=== PATIENT | male | born 1990 | race Hispanic/Latino ===

== ENCOUNTER 2016-09-06 20:14 | Emergency (ER) | payer MEDICAID ==
[~2016-09-06] VITALS: Ht 165.1 cm; Wt 223.2 kg
[~2016-09-06 20:14] MED LIST: NOMED
--- NOTE | 2016-09-06 20:35 | ED.REPORT ---
HPI-Extremity Problem Lower Date of Service September 06, 2016 ED Provider: Zeke Narvaez MD Pt is a 26 y/o male w/ a hx of morbid obesity, diabetes, presenting to the ED c/ o left calf pain and swelling onset today. He injured his left leg months ago exercising and was told to gently use it. He also just completed an [address] He denies SOB, hx DVT or PE, rash, fever, chills. There is no history of similar symptoms. Nursing Notes Stated Complaint: LT LEG SWELLING Nursing Notes Reviewed: Yes Allergies: Coded Allergies: No Known Allergies (Verified Allergy, Unknown, 09/06/16) Scheduled PRN Cyclobenzaprine (Cyclobenzaprine) 5 Mg Tablet 5 MG PO HS PRN PRN Spasm Miscellaneous Medications No Historical Medication (No Historical Medication) Ea General Time Seen by MD: 20:17 Chief Complaint Other (lle pain) Hx Obtained From: Patient Arrived By: Walk-in Onset Occurred: 5 - 8 hours ago Symptom Duration: Since onset Location: : Leg left Quality: Painful Severity: Current: Moderate Severity: Maximum: Moderate Past Medical History Past Medical History Diabetes Morbid obesity Past Surgical History None reported Smoking History Unknown if Ever Smoker Ambulatory Status Independent Review of Systems Constitutional: Denies: Chills, Fever Musculoskeletal: Reports: Extremity pain, Extremity swelling Skin: Denies Rash Complete sys rev & neg: except as marked. Physical Exam Initial Vital Signs Vital Signs (First) Date Time Temp Pulse Resp B/P Pulse Ox O2 Delivery O2 Flow Rate FiO2 09/06/16 20:49 36.4 91 16 143/103 98 Room Air Initial VS: Reviewed, Vital signs normal Head / Eyes: Atraumatic, Normocephalic, PERRL ENT: Mucous membranes moist, Conjunctiva normal, No scleral icterus Neck: Supple, Full range of motion Respiratory: Breath sounds normal, Clear to auscultation, No respiratory distress Cardiovascular: Regular rate & rhythm, Heart sounds normal, Intact distal pulses Abdomen / GI: Soft, Non-tender Skin: Warm, Dry, No cyanosis Neurologic: Alert, Oriented, Nonfocal Psychiatric: Mood/affect normal, Behavior normal, Normal thought content Lower Extremity / Pelvis / MS: Atraumatic, Full range of motion, No deformity, Neurologic intact, Vascular intact Tenderness about left calf Slightly swollen left calf No erythema or warmth Palpable DP and PT pulses Ankle / Foot: Atraumatic, Full range of motion, No swelling, No erythema, Non- tender, No deformity, Neurologic intact, Vascular intact General/Constitutional: Awake, Alert, No acute distress, Well appearing, Cooperative, Not toxic appearing Appearance / Presentation: Positive: Obese, morbidly Interpretation & Diagnostics Interpretation & Diagnostics: US RLE: negative for DVT Lab Results Interpretation Result Diagram: 09/06/16204909/06/162049 Test 09/06/16 20:50 White Blood Count 6.4th/mm3 (3.8-10.1) Red Blood Count 5.25mil/mm3 (4.40-5.80) Hemoglobin 15.6g/dL (13.8-17.2) Hematocrit 44.8% (41.0-50.0) Mean Corpuscular Volume 85.3fL (81-100) Mean Corpuscular Hemoglobin 29.7pg (27.0-35.0) Mean Corpuscular Hemoglobin Concent 34.8% (32.0-37.0) Red Cell Distribution Width 13.8% (12.3-15.4) Platelet Count 205bil/L (150-400) Neutrophils (%) (Auto) 38.0% (40-74) Lymphocytes (%) (Auto) 47.7% (14-46) Monocytes (%) (Auto) 9.9% (4-12) Eosinophils (%) (Auto) 1.9% (0-5) Basophils (%) (Auto) 2.3% (0-3) Prothrombin Time 10.4sec (8.1-12.5) Prothromb Time International Ratio 0.97ratio Sodium Level 135mEq/L (134-144) Potassium Level 3.4mEq/L (3.5-5.2) Chloride Level 96mEq/L (97-108) Carbon Dioxide Level 26mmol/L (18-29) Blood Urea Nitrogen 8mg/dL (6-20) Creatinine 0.71mg/dL (0.76-1.27) Estimat Glomerular Filtration Rate 140mL/min (>59) Glucose Level 382mg/dL (60-99) Calcium Level 8.9mg/dL (8.5-10.1) Total Bilirubin 0.5mg/dL (0.0-1.2) Aspartate Amino Transf (AST/SGOT) 81U/L (0-50) Alanine Aminotransferase (ALT/SGPT) 106U/L (0-44) Alkaline Phosphatase 127U/L (25-150) Total Protein 7.1g/dL (6.4-8.4) Albumin 3.0g/dL (3.4-5.0) Hold Khan Top Tube Received (Received) Re-Eval/Medical Decision Med Decision/Clinical Course Patient is a morbidly obese though otherwise healthy 26-year-old male who presents with left calf cramping and possible swelling over the last 24 hours in the setting of a recent [address] Here in the emergency room the patient is afebrile, hemodynamically stable, neurovascularly intact in the affected extremity and otherwise asymptomatic. Meds given: toradol/flexeril Labs notable as below: CBC: unremarkable CMP: unremarkable except mildly elevated transaminases US RLE: negative for DVT At this time, no evidence of DVT. The patient reports that he thinks he may have sprained a muscle in the leg which seems most consistent with his presentation. Reported symptom improvement after Toradol and Flexeril. He is advised to stretch, apply ice packs as needed and follow up with primary care physician. Prior to discharge follow-up and return precautions were reviewed in detail with the patient who verbalized understanding and agreement with the plan. The patient was discharged in stable condition. Re-Evaluation/Progress : Time of Eval: 22:08 Re-Evaluation/Progress Note: Pt rechecked. Informed pt of plan for treatment. Pt understands and agrees with plan for treatment. F/U instructions and RTER warnings given. All questions addressed. Counseled Regarding: Diagnosis, Need for follow-up, When/why to return to ED Discharge & Departure Impression: Primary Impression: Muscle strain Additional Impressions: Pain of left calf Morbid obesity Obesity type: unspecified obesity type Qualified Code: E66.01 - Morbid ( severe) obesity due to excess calories Disposition: Home Discharge Condition All VS Reviewed: Yes Condition: Stable Additional Instructions: Thank you for seeking care at the emergency room. It is difficult for us to make definitive diagnoses in the ED but we believe that you are experiencing a muscle sprain. Our primary goal today in the ED was to evaluate you for any life-threatening conditions. Your evaluation was reassuring. You will be discharged with a prescription for Flexeril, do not drink or take any other pain medications while taking this medicine. Do not drive with taking this medicine. You should follow-up with your primary doctor in the next week. You should return to the ED immediately if you develop any worsening symptoms, pain, swelling, fevers, vomiting, cough, shortness of breath, chest pain, lightheadedness, weakness or any other concerning signs or symptoms. Thank you for letting us partake in your care today. Scribe Attestation Portions of this note were transcribed by Armani Guerin. I, Dr. Narvaez personally performed the history, physical exam and medical decision-making; I reviewed and confirmed the accuracy of the information in the transcribed note. Signed by Allegra Mcgregor, 09/06/162129 Zeke Narvaez MD September 06, 2016 20:35 ARMANI GUERIN September 06, 2016 21:27
[2016-09-06 20:49] VITALS: BP 143/103; PULSE 91; RESP 16; O2SAT 98
[2016-09-06 21:05] LABS: BASOPHILS % (AUTO) 2.3 % (0-3); EOSINOPHILS % (AUTO) 1.9 % (0-5); MONOCYTES % (AUTO) 9.9 % (4-12); Mean Corpuscular Hemoglobin 29.7 pg (27.0-35.0); Mean Corpuscular Volume 85.3 fL (81-100); Platelet Count 205 bil/L (150-400)
[2016-09-06 21:13] LABS: INR 0.97 ratio
[2016-09-06] MEDS ORDERED: CYCL5TAB PO (22:07)
--- NOTE | 2016-09-06 22:14 | DRSVH ---
PROCEDURE: US VEINOUS LEG DUPLEX UNILATERAL, LEFT INDICATIONS: L leg pain TECHNIQUE: Real-time imaging, as well as color and pulse Doppler interrogation, were performed of the lower extr emity deep veins from the inguinal ligament to the popliteal fossa. COMPARISON: None. FINDINGS: The deep veins are normally compressible, and free of intraluminal thrombus. Color and pu lse Doppler demonstrate normal phasic intraluminal flow. There is normal augmentation response to di stal compression maneuver. IMPRESSION: No evidence of deep vein thrombosis involving the left lower extremity. Dictated by: Minnie Dumont MD, PhD on 09/06/2016 at 22:12 Approved by: Minnie Dumont MD, PhD on 09/06/2016 at 22:12
[2016-09-06 22:19] VITALS: BP 130/80; PULSE 67; RESP 16; O2SAT 100
== END 2016-09-06 22:20 | disposition home or self-care (01) ==
LOC: EDUNIT# 20:14 → SED 20:14
DX: S86.819A Strain of other muscle(s) and tendon(s) at lower leg level, unspecified leg, initial encounter (principal); X50.1XXA Overexertion from prolonged static or awkward postures, initial encounter; Y92.9 Unspecified place or not applicable; Y93.89 Activity, other specified; Y99.8 Other external cause status; E66.01 Morbid (severe) obesity due to excess calories; E11.9 Type 2 diabetes mellitus without complications; Z68.45 Body mass index [BMI] 70 or greater, adult
CPT/HCPCS: 36415; 80053; 85025; 85610; 93970; 96372; 99285; J1885